=== PATIENT | male | born 1940 | race Caucasian/White ===

== ENCOUNTER 2017-07-23 02:02 | Emergency (ER) | payer OTHER ==
[~2017-07-23] VITALS: Ht 170.2 cm; Wt 71.8 kg
[2017-07-23 02:09] VITALS: Ht 170.2 cm; Wt 71.8 kg
[2017-07-23 02:41] LABS: BASOPHIL # 0.1 10^3/ul (0.0-0.1); BASOPHILS % 0.5 % (0.0-2.0); EOSINOPHILS # 0.8 10^3/ul (0.0-0.5); EOSINOPHILS % 7.5 % (0.0-7.0); HEMATOCRIT 38.7 % (42.0-52.0); HEMOGLOBIN 13.2 g/dl (14.0-18.0); LYMPHOCYTES % 28.7 % (15.0-51.0); MEAN CORPUSCULAR HEMOGLOBIN 32.6 pg (29.0-33.0); MEAN CORPUSCULAR HGB CONC 34.1 g/dl (32.0-37.0); MEAN CORPUSCULAR VOLUME 95.6 fl (82.0-101.0); MEAN PLATELET VOLUME 12.2 fl (7.4-10.4); MONOCYTE # 0.5 10^3/ul (0.3-0.9); MONOCYTES % 4.3 % (0.0-11.0); NEUTROPHILS % 58.7 % (39.0-77.0); PLATELET COUNT 249 10^3/UL (140-415); RED BLOOD COUNT 4.05 10^6/ul (4.70-6.10); RED CELL DISTRIBUTION WIDTH 13.2 % (11.5-14.5); WHITE BLOOD COUNT 10.5 10^3/ul (4.8-10.8)
[2017-07-23] MEDS ORDERED: IPRATROPIUM (NEB) 0.5 MG/2.5 ML AMP NEB STA (02:51)
[2017-07-23] MEDS ORDERED: ALBUTEROL 0.083% (NEB) 2.5 MG/3 ML AMP NEB STA (02:51)
--- NOTE | 2017-07-23 02:56 | RADRPT ---
PROCEDURE: XR Chest. CLINICAL INDICATION: Sepsis TECHNIQUE: Portable single view of the chest COMPARISON: None. FINDINGS: There is mild cardiomegaly. Lung volumes are reduced. There is pulmonary vascular congestion as we ll as peribronchial thickening. Areas of scar or subsegmental atelectasis are seen throughout the l [place] bilaterally. Increased left retrocardiac opacity may be due to cardiomegaly or underlyin g airspace disease. No pleural effusion is seen. Degenerative change of the spine and shoulders. Atherosclerotic aorta. IMPRESSION: Cardiomegaly. Slightly increased left retrocardiac opacity may all be due to cardiomegaly although underlying airspace disease cannot be completely excluded. Lateral view could be obtained if indica richard clinically. Mild pulmonary vascular congestion and peribronchial thickening. RPTAT: [facility] Physician Jessa Date Time Electronically viewed and signed by Physician Jessa on 07/23/2017 02:56 VICKY/
[2017-07-23 02:59] LABS: INR 0.94; PROTIME 12.6 Sec (12.2-14.2)
[2017-07-23 03:00] LABS: PARTIAL THROMBOPLASTIN TIME 26.9 Sec (25.0-35.0)
[2017-07-23 03:01] LABS: ALBUMIN 3.9 g/dl (3.3-4.9); ALBUMIN/GLOBULIN RATIO 1.14; BILIRUBIN,INDIRECT 0.4 mg/dl (0-1.1); BILIRUBIN,TOTAL 0.4 mg/dl (0.2-1.3); CALCIUM 8.6 mg/dl (8.4-10.2); CREATININE 1.01 mg/dl (0.61-1.24); POTASSIUM 4.2 mmol/L (3.5-5.1); TOTAL PROTEIN 7.3 g/dl (6.1-8.1)
[2017-07-23 03:17] LABS: TROPONIN-I 1.06 ng/ml (0.00-0.12)
[2017-07-23] MEDS ORDERED: ASPIRIN 325 MG TAB PO ONE (04:00)
[2017-07-23] MEDS ORDERED: GLIP5TAB13 PO (05:08)
[2017-07-23] MEDS ORDERED: METF500T4 PO (05:08)
[2017-07-23 05:17] VITALS: BP 126/81; PULSE 102; RESP 18; TEMP 97.3
[2017-07-23] MEDS ORDERED: INSU100C3 SQ (05:17)
--- NOTE | 2017-07-23 05:25 | ERA ---
ER Documentation Chief Complaint Date/Time DATE: 07/23/17 TIME: 05:23 Chief Complaint BIB RA 90 FR HOME, C/O SOB COUGH/CONGESTION [id number] HPI -year-old male brought in from home with complaints of shortness of breath and cough and chest pain. Patient in by ambulance. Chest pain is very mild. Shortness breath. Progressively worse over the last 2 days. No nausea no vomiting no chills. No other current complaints. Patient is a [facility] patient ROS All systems reviewed and are negative except as per history of present illness. Medications Home Meds Reported Medications Glipizide* (Glipizide*) 5 Mg Tablet, 5 MG PO AC BREAKFAST DINNER, TAB 07/23/17 Metformin* (Glucophage*) 500 Mg Tab, 500 MG PO WITH BREAKFAST DINNE, #30 TAB 07/23/17 Discontinued Reported Medications Insulin Aspart (Novolog) 100 Unit/1 Ml Cartridge, 15 UNIT SQ Q9PM 07/23/17 Allergies Allergies: Coded Allergies: No Known Allergy (Unverified , 07/23/17) PMhx/Soc Medical and Surgical Hx: pt denies Surgical Hx History of Surgery: No Anesthesia Reaction: No Hx Neurological Disorder: No Hx Respiratory Disorders: No Hx Cardiac Disorders: Yes (htn, diabetes ) Hx Psychiatric Problems: No Hx Miscellaneous Medical Probl: No Hx Alcohol Use: No Hx Substance Use: No Hx Tobacco Use: No Smoking Status: Former smoker Physical Exam Vitals Vital Signs Date Time Temp Pulse Resp B/P Pulse Ox O2 Delivery O2 Flow Rate FiO2 07/23/17 05:17 97.3 102 18 126/81 100 Nasal Cannula 2.0 07/23/17 03:37 100 2.0 28 07/23/17 03:28 108 17 100 Nasal Cannula 2.0 28 07/23/17 03:20 97.3 104 19 106/68 99 Nasal Cannula 2.0 07/23/17 02:14 Nasal Cannula 2 07/23/17 02:14 Nasal Cannula 2.0 07/23/17 02:09 97.3 122 23 111/93 90 Physical Exam Const: [] Head: Atraumatic Eyes: Normal Conjunctiva ENT: Normal External Ears, Nose and Mouth. Neck: Full range of motion..~ No meningismus. Resp: Clear to auscultation bilaterally Cardio: Regular rate and rhythm, no murmurs Abd: Soft, non tender, non distended. Normal bowel sounds Skin: No petechiae or rashes Back: No midline or flank tenderness Ext: No cyanosis, or edema Neur: Awake and alert Psych: Normal Mood and Affect Result Diagram: 07/23/1722307/23/17223 Results 24 hrs Laboratory Tests Test 07/23/17 02:24 07/23/17 02:28 White Blood Count 10.510^3/ul Red Blood Count 4.0510^6/ul Hemoglobin 13.2g/dl Hematocrit 38.7% Mean Corpuscular Volume 95.6fl Mean Corpuscular Hemoglobin 32.6pg Mean Corpuscular Hemoglobin Concent 34.1g/dl Red Cell Distribution Width 13.2% Platelet Count 31469^3/UL Mean Platelet Volume 12.2fl Neutrophils % 58.7% Lymphocytes % 28.7% Monocytes % 4.3% Eosinophils % 7.5% Basophils % 0.5% Nucleated Red Blood Cells % 0.0/100WBC Neutrophils # (Manual) 610^3/ul Lymphocytes # 3.010^3/ul Monocytes # 0.510^3/ul Eosinophils # 0.810^3/ul Basophils # 0.110^3/ul Nucleated Red Blood Cells # 0.010^3/ul Prothrombin Time 12.6Sec Prothrombin Time Ratio 1.0 INR International Normalized Ratio 0.94 Activated Partial Thromboplast Time 26.9Sec Sodium Level 139mmol/L Potassium Level 4.2mmol/L Chloride Level 108mmol/L Carbon Dioxide Level 20mmol/L Anion Gap 15 Blood Urea Nitrogen 19mg/dl Creatinine 1.01mg/dl Glucose Level 243mg/dl Calcium Level 8.6mg/dl Total Bilirubin 0.4mg/dl Direct Bilirubin 0.00mg/dl Indirect Bilirubin 0.4mg/dl Aspartate Amino Transf (AST/SGOT) 30IU/L Alanine Aminotransferase (ALT/SGPT) 29IU/L Alkaline Phosphatase 84IU/L Troponin I 1.060ng/ml B-Type Natriuretic Peptide 6310PG/ML Total Protein 7.3g/dl Albumin 3.9g/dl Globulin 3.40g/dl Albumin/Globulin Ratio 1.14 Lactic Acid Level 1.9mmol/L Current Medications Medications (Trade) Dose Ordered Sig/Tuan Route PRN Reason Start Time Stop Time Status Last Admin Dose Admin Albuterol (Proventil 0.083% (Neb)) 5 mg ONCE STAT NEB 07/23/17 02:51 07/23/17 02:52 DC 07/23/17 03:28 Ipratropium [place] (Atrovent 0.02% (Neb)) 0.5 mg ONCE STAT NEB 07/23/17 02:51 07/23/17 02:52 DC 07/23/17 03:27 Aspirin (Aspirin) 325 mg ONCE ONCE PO 07/23/17 04:00 07/23/17 04:01 DC 07/23/17 03:53 Furosemide (Lasix) 40 mg ONCE ONCE IV 07/23/17 05:30 07/23/17 05:31 Nitroglycerin (Nitroglycerin 2% Oint) 1 inch ONCE ONCE TD 07/23/17 05:30 07/23/17 05:31 Procedures/MDM EKG: Rate/Rhythm: Normal Sinus Rhythm QRS, ST, T-waves: No changes consistent w/ acute ischemia Impression: No evidence of ischemia or arrhythmia Chest X-ray 1V Interpreted by me: Soft Tissue: No acute abnormalities Bones: No acute abnormalities Mediastinum/Cardiac Silhouette/Lungs: Cardiomegaly with increased interstitial fluid markings Patient's symptoms are concerning for cardiac cause will require inpatient workup and continuous monitoring. Further w/u for ischemia, arrhythmia, PE or dissection will be deferred to the inpatient team. Elevation of troponin and absence of ST segment elevation myocardial infarction makes is a subacute cardiac injury. Patient will be transferred to [facility] for further evaluation and management via [facility] teacher transport Accepting Care Team: Current data and ongoing care discussed. Time: 5 AM Primary Provider: Transferred to [facility] Consulting: [ANGELAO] Outstanding Data: none Departure Diagnosis: Primary Impression: Non-STEMI (non-ST elevated myocardial infarction) Condition: Stable STELLA GARVEY Jul 23, 2017 05:25
[2017-07-23] MEDS ORDERED: FUROSEMIDE 40 MG INJ IV ONE (05:30)
[2017-07-23] MEDS ORDERED: NITROGLYCERIN 2% 1 GM OINT PKT TD ONE (05:30)
== END 2017-07-23 06:49 | disposition short-term general hospital (02) ==
LOC: E/R 02:02
DX: I21.4 Non-ST elevation (NSTEMI) myocardial infarction (principal); I10 Essential (primary) hypertension; E11.9 Type 2 diabetes mellitus without complications; Z79.4 Long term (current) use of insulin; Z79.84 Long term (current) use of oral hypoglycemic drugs; Z87.891 Personal history of nicotine dependence
CPT/HCPCS: 71010; 80053; 83605; 83880; 84484; 85025; 85610; 85730; 87040; 93005; 94664; 96374; 99285; J1940

== ENCOUNTER 2017-08-16 01:50 | Emergency (ER) | payer OTHER ==
[~2017-08-16] VITALS: Ht 170.2 cm; Wt 61.0 kg
[~2017-08-16 01:50] MED LIST: GLIP5TAB13 PO; METF500T4 PO
[2017-08-16 01:58] VITALS: Ht 170.2 cm; Wt 61.0 kg
[2017-08-16 02:02] VITALS: TEMP 98.1
[2017-08-16] MEDS ORDERED: LISI-313 PO (02:54)
[2017-08-16] MEDS ORDERED: BISO5TAB21 PO (02:54)
[2017-08-16] MEDS ORDERED: CLOP75TA4 PO (02:54)
[2017-08-16] MEDS ORDERED: ASPI-664 PO (02:54)
[2017-08-16] MEDS ORDERED: FURO40TA4 PO (02:54)
[2017-08-16] MEDS ORDERED: ATOR40TA68 PO (02:54)
[2017-08-16 03:29] LABS: BASOPHILS % 0.5 % (0.0-2.0); EOSINOPHILS # 0.4 10^3/ul (0.0-0.5); EOSINOPHILS % 6.2 % (0.0-7.0); HEMATOCRIT 38.5 % (42.0-52.0); LYMPHOCYTES # 1.4 10^3/ul (0.8-2.9); LYMPHOCYTES % 22.5 % (15.0-51.0); MEAN CORPUSCULAR HEMOGLOBIN 32.3 pg (29.0-33.0); MEAN CORPUSCULAR HGB CONC 33.8 g/dl (32.0-37.0); MEAN CORPUSCULAR VOLUME 95.8 fl (82.0-101.0); MEAN PLATELET VOLUME 11.2 fl (7.4-10.4); MONOCYTE # 0.6 10^3/ul (0.3-0.9); MONOCYTES % 8.9 % (0.0-11.0); NEUTROPHIL # 3.9 10^3/ul (1.6-7.5); NEUTROPHILS % 61.7 % (39.0-77.0); PLATELET COUNT 191 10^3/UL (140-415); RED BLOOD COUNT 4.02 10^6/ul (4.70-6.10); RED CELL DISTRIBUTION WIDTH 12.1 % (11.5-14.5); WHITE BLOOD COUNT 6.3 10^3/ul (4.8-10.8)
--- NOTE | 2017-08-16 03:43 | RADRPT ---
PROCEDURE: CT BRAIN WITHOUT CONTRAST CLINICAL INDICATION: 77-year-old male with headaches. TECHNIQUE: The study was performed utilizing [employer] VCT 64-slice CT scanner. Direct axial sections were obtained from the foramen magnum to the vertex without the use of intravenous contrast material. Sagittal and coronal reformations were obtained. One or more the following dose reduction techniques were utilized: automated exposure control, adjustment of the mA and/or kV according to p atient's size or use of iterative reconstruction technique. The images were viewed on a PACS worksta tion. CTD/vol = 45.0 mGy; Total Exam DLP = 720.2 mGy-cm. COMPARISON: None. FINDINGS: There is mild degree of diffuse cortical and central atrophy with compensatory ventricular enlargeme nt. There is no evidence for mass effect or midline shift. There are periventricular and deep whit e matter areas of decreased density consistent with microangiopathic ischemic changes. 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 There is no evidence for acute intra or extra-axial blood. Calcifications are seen within the intracranial carotid and v ertebral arteries bilaterally. The bony calvarium is intact. There is minimal mucosal thickening wit hin the ethmoid air cells bilaterally. No air-fluid levels are noted. The mastoid air cells are with out significant soft tissue. IMPRESSION: 1. Mild diffuse atrophy. 2. Microangiopathic ischemic changes. 3. 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 4. Vascular calcifications. 5. Minimal mucosal thickening ethmoid air cells. .Mike Monge MD, Date Time Electronically viewed and signed by .Mike Monge MD, MD on 08/16/2017 03:43 .Leigh Ann
[2017-08-16 03:47] LABS: INR 0.93; PARTIAL THROMBOPLASTIN TIME 28.5 Sec (25.0-35.0); PROTIME 12.5 Sec (12.2-14.2)
[2017-08-16 03:49] LABS: CALCIUM 9.5 mg/dl (8.4-10.2); CREATININE 1.2 mg/dl (0.61-1.24); POTASSIUM 4.5 mmol/L (3.5-5.1)
[2017-08-16] MEDS ORDERED: SOD CHLORIDE 0.9% 500 ML IV ONE (04:30)
[2017-08-16 06:00] VITALS: BP 129/85; PULSE 70; RESP 16
--- NOTE | 2017-08-16 23:01 | ERA ---
ER Documentation Chief Complaint Date/Time DATE: 08/16/17 Chief Complaint BIB RA FROM HOME FOR HEADACHE AND DIZZINESS X 1 DAY, PT CANNOT SLEEP HPI The patient is a 77-year-old male, presenting with headache, dizziness intermittently for 2 weeks, worse tonight. He denies vertigo, he has similar symptoms previously, denies fever, chills, neck pain, chest pain, abdominal pain , vomiting, dysuria, diarrhea. He does not smoke nor drink, has a lot of stress in his life, lives alone Past medical history: Hypertension, diabetes mellitus, dyslipidemia, depression Past surgical history: None ROS All systems reviewed and are negative except as per history of present illness. Medications Home Meds Reported Medications Bisoprolol Fumarate* (Bisoprolol Fumarate*) 5 Mg Tablet, 5 MG PO DAILY, TAB 08/16/17 Lisinopril* (Lisinopril*) 5 Mg Tablet, 5 MG PO DAILY, #30 TAB 08/16/17 Aspirin* (Aspirin* EC) 81 Mg Tablet.dr, 81 MG PO DAILY, TAB 08/16/17 Clopidogrel Bisulfate* (Clopidogrel Bisulfate*) 75 Mg Tablet, 75 MG PO DAILY, # 30 TAB 08/16/17 Furosemide* (Furosemide*) 40 Mg Tablet, 40 MG PO DAILY, TAB 08/16/17 Atorvastatin* (Atorvastatin*) 40 Mg Tablet, 40 MG PO QPM, #30 TAB 08/16/17 Discontinued Reported Medications Glipizide* (Glipizide*) 5 Mg Tablet, 5 MG PO AC BREAKFAST DINNER, TAB 07/23/17 Metformin* (Glucophage*) 500 Mg Tab, 500 MG PO WITH BREAKFAST DINNE, #30 TAB 07/23/17 Allergies Allergies: Coded Allergies: No Known Allergy (Unverified , 08/16/17) PMhx/Soc History of Surgery: No Anesthesia Reaction: No Hx Neurological Disorder: No Hx Respiratory Disorders: No Hx Cardiac Disorders: Yes (htn, diabetes ) Hx Psychiatric Problems: No Hx Miscellaneous Medical Probl: No Hx Alcohol Use: No Hx Substance Use: No Hx Tobacco Use: No Smoking Status: Never smoker Physical Exam Vitals Vital Signs Date Time Temp Pulse Resp B/P Pulse Ox O2 Delivery O2 Flow Rate FiO2 08/16/17 06:00 70 16 129/85 100 Room Air 08/16/17 05:04 68 16 116/67 100 Room Air 08/16/17 02:02 98.1 81 18 142/81 96 Room Air 08/16/17 01:58 98.6 80 18 145/84 96 Physical Exam Const: No acute distress. Head: Atraumatic. Eyes: Normal Conjunctiva. ENT: Normal External Ears, Nose and Mouth. Neck: Full range of motion. No meningismus. Resp: Clear to auscultation bilaterally. Cardio: Regular rate and rhythm. Abd: Soft, non distended, normal bowel sounds, non tender. Skin: No petechiae or rashes. Back: No midline or flank tenderness. Ext: No cyanosis, or edema. Neur: Awake and alert. No focal deficit Psych: Normal Mood and Affect. Result Diagram: 08/16/1723208/16/17232 Results 24 hrs Laboratory Tests Test 08/16/17 02:33 White Blood Count 6.310^3/ul Red Blood Count 4.0210^6/ul Hemoglobin 13.0g/dl Hematocrit 38.5% Mean Corpuscular Volume 95.8fl Mean Corpuscular Hemoglobin 32.3pg Mean Corpuscular Hemoglobin Concent 33.8g/dl Red Cell Distribution Width 12.1% Platelet Count 72090^3/UL Mean Platelet Volume 11.2fl Neutrophils % 61.7% Lymphocytes % 22.5% Monocytes % 8.9% Eosinophils % 6.2% Basophils % 0.5% Nucleated Red Blood Cells % 0.0/100WBC Neutrophils # 3.910^3/ul Lymphocytes # 1.410^3/ul Monocytes # 0.610^3/ul Eosinophils # 0.410^3/ul Basophils # 0.010^3/ul Nucleated Red Blood Cells # 0.010^3/ul Prothrombin Time 12.5Sec Prothrombin Time Ratio 1.0 INR International Normalized Ratio 0.93 Activated Partial Thromboplast Time 28.5Sec Sodium Level 138mmol/L Potassium Level 4.5mmol/L Chloride Level 104mmol/L Carbon Dioxide Level 25mmol/L Anion Gap 14 Blood Urea Nitrogen 29mg/dl Creatinine 1.20mg/dl Glucose Level 152mg/dl Calcium Level 9.5mg/dl Current Medications Medications (Trade) Dose Ordered Sig/Tuan Route PRN Reason Start Time Stop Time Status Last Admin Dose Admin Sodium Chloride (NS) 500 ml @ 500 mls/hr Q1H ONCE IV 08/16/17 04:30 08/16/17 05:29 DC 08/16/17 04:53 Procedures/MDM [place] [address] Radiology Main Line: [phone] DIAGNOSTIC IMAGING REPORT Patient: LINDSEY KIRKLAND : 1940 Age: 77 Sex: M MR #: [id number] DOS: 08/16/17 0210 Ordering MD: NICHOLE MEDEIROS MD Location: E/R Room/Bed: PROCEDURE: CT BRAIN WITHOUT CONTRAST CLINICAL INDICATION: 77-year-old male with headaches. TECHNIQUE: The study was performed utilizing [email or web address] VCT 64-slice CT scanner. Direct axial sections were obtained from the foramen magnum to the vertex without the use of intravenous contrast material. Sagittal and coronal reformations were obtained. One or more the following dose reduction techniques were utilized: automated exposure control, adjustment of the mA and/or kV according to patient's size or use of iterative reconstruction technique. The images were viewed on a PACS workstation. CTD/vol = 45.0 mGy; Total Exam DLP = 720.2 mGy-cm. COMPARISON: None. FINDINGS: There is mild degree of diffuse cortical and central atrophy with compensatory ventricular enlargement. There is no evidence for mass effect or midline shift. There are periventricular and deep white matter areas of decreased density consistent with microangiopathic ischemic changes. 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 There is no evidence for acute intra or extra-axial blood. Calcifications are seen within the intracranial carotid and vertebral arteries bilaterally. The bony calvarium is intact. There is minimal mucosal thickening within the ethmoid air cells bilaterally. No air-fluid levels are noted. The mastoid air cells are without significant soft tissue. IMPRESSION: 1. Mild diffuse atrophy. 2. Microangiopathic ischemic changes. 3. 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 4. Vascular calcifications. 5. Minimal mucosal thickening ethmoid air cells. .Mike Monge MD, MD Date Time Electronically viewed and signed by .Mike Monge MD, MD on 08/16/2017 03:43 .M/ CC: NICHOLE MEDEIROS MD \ MEDICAL MAKING DECISION: The patient is a 77-year-old male, presenting with acute dizziness of unclear etiology, acute dehydration. He was treated with normal saline 500 mL with good response The differential diagnoses considered include but are not limited to central causes such as cerebellar infarct, cerebellar hemorrhage, cerebellar tumor, acoustic neuroma, peripheral causes such as benign positional vertigo, labyrinthitis, medication, Meniere's disease. Departure Diagnosis: Primary Impression: Dizziness Additional Impressions: Dehydration Anemia Condition: Good Patient Instructions: Dizziness, Unk Cause Additional Instructions: Call your primary care doctor TOMORROW for an appointment during the next 1-2 days.See the doctor sooner or return here if your condition worsens before your appointment time. NICHOLE MEDEIROS MD Aug 16, 2017 23:01
== END 2017-08-16 07:10 | disposition home or self-care (01) ==
LOC: E/R 01:50
DX: R51 Headache (principal); E86.0 Dehydration; D64.9 Anemia, unspecified; I10 Essential (primary) hypertension; E11.9 Type 2 diabetes mellitus without complications; Z79.01 Long term (current) use of anticoagulants; Z79.84 Long term (current) use of oral hypoglycemic drugs; Z79.82 Long term (current) use of aspirin
CPT/HCPCS: 36415; 70450; 80048; 85025; 85610; 85730; 99285; J7040

== ENCOUNTER 2017-09-29 01:00 | Emergency (ER) | payer OTHER ==
[~2017-09-29] VITALS: Ht 170.2 cm; Wt 75.0 kg
[~2017-09-29 01:00] MED LIST changes: +ASPI-664 PO; +ATOR40TA68 PO; +BISO5TAB21 PO; +CLOP75TA4 PO; +FURO40TA4 PO; -GLIP5TAB13 PO; +LISI-313 PO; -METF500T4 PO
[2017-09-29] MEDS ORDERED: ONDANSETRON 4 MG INJ IV STA (01:04)
[2017-09-29] MEDS ORDERED: ASPIRIN 325 MG TAB PO STA (01:04)
[2017-09-29] MEDS ORDERED: ALBUTEROL 0.083% (NEB) 2.5 MG/3 ML AMP HHN STA (01:04)
[2017-09-29 01:08] VITALS: Ht 170.2 cm; Wt 75.0 kg
[2017-09-29] MEDS ORDERED: IPRATROPIUM (NEB) 0.5 MG/2.5 ML AMP HHN ONE (01:30)
[2017-09-29 01:57] LABS: BASOPHIL # 0.1 10^3/ul (0.0-0.1); BASOPHILS % 0.7 % (0.0-2.0); EOSINOPHILS # 0.6 10^3/ul (0.0-0.5); EOSINOPHILS % 5.3 % (0.0-7.0); HEMATOCRIT 44.7 % (42.0-52.0); HEMOGLOBIN 14.1 g/dl (14.0-18.0); LYMPHOCYTES # 4.8 10^3/ul (0.8-2.9); LYMPHOCYTES % 40.6 % (15.0-51.0); MEAN CORPUSCULAR HEMOGLOBIN 31.3 pg (29.0-33.0); MEAN CORPUSCULAR HGB CONC 31.5 g/dl (32.0-37.0); MEAN CORPUSCULAR VOLUME 99.1 fl (82.0-101.0); MEAN PLATELET VOLUME 11.2 fl (7.4-10.4); MONOCYTE # 0.7 10^3/ul (0.3-0.9); MONOCYTES % 6.1 % (0.0-11.0); NEUTROPHIL # 5.5 10^3/ul (1.6-7.5); NEUTROPHILS % 47.1 % (39.0-77.0); PLATELET COUNT 275 10^3/UL (140-415); RED BLOOD COUNT 4.51 10^6/ul (4.70-6.10); RED CELL DISTRIBUTION WIDTH 13.3 % (11.5-14.5); WHITE BLOOD COUNT 11.8 10^3/ul (4.8-10.8)
[2017-09-29] MEDS ORDERED: NITROGLYCERIN (SL) 0.4 MG TAB SL ONE (02:00)
[2017-09-29] MEDS ORDERED: FUROSEMIDE 40 MG INJ IV ONE (02:00)
--- NOTE | 2017-09-29 02:16 | RADRPT ---
PROCEDURE: XR Chest. CLINICAL INDICATION: Chest pain. TECHNIQUE: Single frontal view of the chest. COMPARISON: None. FINDINGS: Mild cardiomegaly. Bilateral patchy air space disease with nodular features. Recommend follow-up to resolution. Left lung base discoid atelectasis. signs of pleural fluid or pneumothorax are seen. The osseous structures and soft tissues are unremarkable. IMPRESSION: 1. Bilateral patchy air space disease compatible with bilateral pneumonias. 2. Underlying nodular features in the bilateral air space disease, and recommend follow-up to resolu tion. 3. CT examination would be more sensitive and specific for evaluating lung parenchyma. RPTAT: [facility] Physician Oracio Date Time Electronically viewed and signed by Physician Oracio on 09/29/2017 02:15 RS/
[2017-09-29 02:22] LABS: AADO2 Arterial 198.9 mmHg (7.0-24.0); Allen Test ACCEPTAB; Arterial Base Excess -4.8 mmol/L (-3.0-3); Arterial COHb 0.7 % (0.0-3.0); Arterial Fraction of Oxyhgb 98.1 % (93.0-99.0); Arterial HCO3 20.3 mmol/L (22.0-26.0); Arterial MetHb 0.4 % (0.0-1.5); Arterial Total Hemglobin 14.5 g/dl (12.0-18.0); Blood Gas IEPAP 18/6; Blood Gas PS 12; MODE MASK - BIPAP
[2017-09-29 02:26] LABS: CALCIUM 9.3 mg/dl (8.4-10.2); CREATININE 1.41 mg/dl (0.61-1.24); POTASSIUM 3.5 mmol/L (3.5-5.1)
[2017-09-29 02:39] LABS: TROPONIN-I 0.047 ng/ml (0.00-0.12)
[2017-09-29] MEDS ORDERED: INSULIN LISPRO 100 UNIT/ML VIAL SC STA (03:00)
--- NOTE | 2017-09-29 04:33 | ERD ---
ER Documentation Chief Complaint Chief Complaint severe resp distress, bib ra on cpap; hx unk HPI 77-year-old male was brought in and severe respiratory distress on CPAP. Patient himself had called paramedics in respiratory distress. They had arrived the patient was no longer able to talk because he was having such difficulty breathing. They are unable to obtain any information including his name. Patient was immediately placed on BiPAP after which improved somewhat a few minutes later and when asking him in [place] patient was able to answer yes/no questions. Denies chest pain, confirms severe shortness of breath that started today. No further history is possible yet. ROS Unobtainable Allergies Allergies: Coded Allergies: No Known Allergy (Unverified , 09/29/17) PMhx/Soc Hx Cardiac Disorders: Yes (htn) Hx Psychiatric Problems: Yes (depression) Hx Miscellaneous Medical Probl: Yes (DM, dyslipidemia ) Smoking Status: Unknown if ever smoked Physical Exam Vitals Vital Signs Date Time Temp Pulse Resp B/P Pulse Ox O2 Delivery O2 Flow Rate FiO2 09/29/17 03:00 Nasal Cannula 2.0 09/29/17 02:10 111 24 93 21 09/29/17 01:34 112 100 60 09/29/17 01:08 96.5 116 36 141/102 100 09/29/17 01:04 15 Physical Exam Const: [] Severe respiratory distress Head: Atraumatic Eyes: Normal Conjunctiva ENT: Normal External Ears, Nose and Mouth. Patient spitting frothy pink sputum Neck: Full range of motion..~ No meningismus. Resp: Tachypnea with accessory muscle use and decreased breath sounds in lungs with pronounced coarse rales at every listening post including anteriorly. Cardio: Regular tachycardia no murmurs Abd: Soft, non tender, non distended. Normal bowel sounds Skin: No petechiae or rashes Back: No midline or flank tenderness Ext: No cyanosis, or edema Neur: Awake and alert, answering some questions, full neuro exam not possible on arrival. No exam was repeated after BiPAP was discontinued and patient was alert and oriented 3 with no focal deficits. Result Diagram: 09/29/1710009/29/17100 Results 24 hrs Laboratory Tests Test 09/29/17 01:01 09/29/17 01:35 09/29/17 03:38 White Blood Count 11.810^3/ul Red Blood Count 4.5110^6/ul Hemoglobin 14.1g/dl Hematocrit 44.7% Mean Corpuscular Volume 99.1fl Mean Corpuscular Hemoglobin 31.3pg Mean Corpuscular Hemoglobin Concent 31.5g/dl Red Cell Distribution Width 13.3% Platelet Count 27236^3/UL Mean Platelet Volume 11.2fl Neutrophils % 47.1% Lymphocytes % 40.6% Monocytes % 6.1% Eosinophils % 5.3% Basophils % 0.7% Nucleated Red Blood Cells % 0.0/100WBC Neutrophils # 5.510^3/ul Lymphocytes # 4.810^3/ul Monocytes # 0.710^3/ul Eosinophils # 0.610^3/ul Basophils # 0.110^3/ul Nucleated Red Blood Cells # 0.010^3/ul Sodium Level 142mmol/L Potassium Level 3.5mmol/L Chloride Level 104mmol/L Carbon Dioxide Level 22mmol/L Anion Gap 20 Blood Urea Nitrogen 24mg/dl Creatinine 1.41mg/dl Glucose Level 439mg/dl Calcium Level 9.3mg/dl Troponin I 0.047ng/ml B-Type Natriuretic Peptide 4590PG/ML Blood Gas Specimen Source Blood arterial Arterial Blood Date Drawn 09/29/2017 2:05:59 AM Arterial Blood pH (Temp corrected) 7.343 Arterial Blood pCO2 (Temp correct) 38.3mmhg Arterial Blood pO2 (Temp corrected) 186.8mmHG Arterial Blood HCO3 20.3mmol/L Arterial Blood Base Excess -4.8mmol/L Arterial Blood Oxygen Saturation 99.2mmHG Mitchell Test ACCEPTAB Arterial Blood Gas Puncture Site Right Radial Arterial Blood Carboxyhemoglobin 0.7% Arterial Blood Methemoglobin 0.4% Blood Gas A-a O2 Differential 198.9mmHg Oxyhemoglobin Percent 98.1% Total Hemoglobin 14.5g/dl Blood Gas Temperature 37.0C Blood Gas Respiration Rate 20.0 Blood Gas Actual Respiration Rate 22 Blood Gas Modality MASK - BIPAP FiO2 60.0% Blood Gas Pressure Support 12 Blood Gas IPAP/EPAP Ratio 18/6 Blood Gas Notified Whom UP Blood Gas Notified Time 09/29/2017 2:22:27 AM Bedside Glucose 417mg/dL Current Medications Medications (Trade) Dose Ordered Sig/Tuan Route PRN Reason Start Time Stop Time Status Last Admin Dose Admin Aspirin (Aspirin) 325 mg ONCE STAT PO 09/29/17 01:04 09/29/17 01:06 DC 09/29/17 02:11 Albuterol (Proventil 0.083% (Neb)) 5 mg ONCE STAT HHN 09/29/17 01:04 09/29/17 01:06 DC 09/28/17 02:12 Ipratropium [place] (Atrovent 0.02% (Neb)) 1 mg ONCE ONCE HHN 09/29/17 01:30 09/29/17 01:31 DC 09/29/17 02:12 Ondansetron HCl (Zofran Inj) 4 mg ONCE STAT IV 09/29/17 01:04 09/29/17 01:06 DC 09/29/17 01:36 Furosemide (Lasix) 40 mg ONCE ONCE IV 09/29/17 02:00 09/29/17 02:01 DC 09/29/17 02:15 Nitroglycerin (Nitroglycerin (Sl Tab) 0.4 Mg) 1 tab ONCE ONCE SL 09/29/17 02:00 09/29/17 02:01 DC 09/29/17 02:15 Insulin Human Lispro (Humalog) 8 unit ONCE STAT SC 09/29/17 03:00 09/29/17 03:12 DC 09/29/17 03:45 Procedures/MDM Respiratory failure secondary to CHF and likely flash pulmonary edema. Elevated BNP and diffuse pulmonary edema on chest x-ray. Patient immediately placed on BiPAP and given Zofran. So given aspirin and nitroglycerin. 4o mg of IV Lasix given. Patient's condition improved on BiPAP and with medication was able to switch to nonrebreather mask. No signs of ischemia and EKG. 8 mg of subcutaneous lispro insulin given for diabetic hyperglycemia. Spoke with [facility] who would like patient to be transferred. Patient was given the option of [facility] or [place] and [facility] because his closer although he preferred to stay in this hospital. For insurance reasons he will be transferred according to [place]'s protocol. His critical status has transitioned to guarded and I believe is appropriate for ALS. Is being tried on 4 L nasal cannula now and is still saturating well. EEG interpretation: Sinus tachycardia 114, bifascicular block, indeterminate axis, no ST or T-wave changes concerning for acute ischemia. alarm security or surveillance monitor interpretation: Sinus tachycardia followed by normal sinus rhythm. No arrhythmias Chest x-ray interpretation: Diffuse pulmonary edema, see no obvious infiltrates , no fractures, no pneumothorax. Of note, radiologist mentions bilateral pneumonia however given the clinical setting this is highly unlikely and the x- ray does have appearance of pulmonary edema rather than pneumonia. Critical care time 35 minutes: This includes treatment of respiratory failure with need for BiPAP, consideration of nitroglycerin drip, use of nitroglycerin tablets, Lasix, multiple space bedside to reassess status, treatment of hyperglycemia, stabilization of unstable vital signs, review of chart, discussion with patient and [facility] doctor. This does not include any billable procedures. Departure Diagnosis: Primary Impression: Respiratory failure Additional Impressions: Flash pulmonary edema Congestive heart failure Hyperglycemia due to type 2 diabetes mellitus Condition: Serious LUIS M PIMENTEL DO Sep 29, 2017 04:32
[2017-09-29 05:32] VITALS: BP 118/77; PULSE 90; RESP 14; TEMP 98.4
== END 2017-09-29 06:00 | disposition short-term general hospital (02) ==
LOC: E/R 01:00 → EDBD 01:00 → MERGE 01:00 → E/R 06:00
DX: J96.90 Respiratory failure, unspecified, unspecified whether with hypoxia or hypercapnia (principal); J81.0 Acute pulmonary edema; I50.9 Heart failure, unspecified; E11.65 Type 2 diabetes mellitus with hyperglycemia; I10 Essential (primary) hypertension
CPT/HCPCS: 36415; 36600; 71010; 80048; 82803; 82962; 83880; 84484; 85025; 93005; 94644; 94660; 96372; 96374; 96375; 99291; J1815; J1940; J2405

== ENCOUNTER 2017-12-15 23:08 | Emergency (ER) | END 2017-12-16 04:20 | disposition short-term general hospital (02) ==

== ENCOUNTER 2018-04-18 10:41 | Emergency (ER) | END 2018-04-18 14:49 | disposition home or self-care (01) ==

== ENCOUNTER 2018-04-26 05:38 | Observation (INO) | END 2018-04-27 18:30 | disposition home or self-care (01) ==

== ENCOUNTER 2018-05-30 02:00 | Inpatient (IN) | END 2018-05-31 14:33 | disposition home health service (06) | DRG 292 ==

== ENCOUNTER 2018-06-04 12:49 | Emergency (ER) | END 2018-06-04 21:56 | disposition short-term general hospital (02) ==

== ENCOUNTER 2018-06-10 05:23 | Emergency (ER) | END 2018-06-10 08:49 | disposition left against medical advice (07) ==

== ENCOUNTER 2018-06-14 10:45 | Emergency (ER) | END 2018-06-14 14:06 | disposition home or self-care (01) ==

== ENCOUNTER 2018-06-15 17:31 | Emergency (ER) | END 2018-06-15 20:45 | disposition home or self-care (01) ==

== ENCOUNTER 2018-06-20 00:38 | Emergency (ER) | END 2018-06-20 04:42 | disposition home or self-care (01) ==

== ENCOUNTER 2018-06-21 23:15 | Emergency (ER) | END 2018-06-22 12:54 | disposition left against medical advice (07) ==

== ENCOUNTER 2018-06-24 15:39 | Emergency (ER) | END 2018-06-24 18:08 | disposition home or self-care (01) ==

== ENCOUNTER 2018-06-25 22:14 | Emergency (ER) | END 2018-06-26 05:34 | disposition home or self-care (01) ==

== ENCOUNTER 2018-07-03 08:35 | Inpatient (IN) | END 2018-07-04 17:36 | disposition home health service (06) | DRG 291 ==

== ENCOUNTER 2018-07-13 15:15 | Emergency (ER) | END 2018-07-13 18:30 | disposition home or self-care (01) ==

== ENCOUNTER 2018-07-21 19:48 | Emergency (ER) | END 2018-07-22 03:21 | disposition home or self-care (01) ==